=== PATIENT | male | born 1970 | race Caucasian/White ===

== ENCOUNTER 2020-10-14 13:54 | Outpatient (CLI) | payer OTHER, SELFPAY ==
--- NOTE | 2020-10-14 14:15 | US_ITS ---
WS: [id number] SCROTAL ULTRASOUND EXAMINATION CLINICAL INFORMATION: N50.89 - Other specified disorders of the male genital or... COMPARISON: None. FINDINGS: TESTES Normal in size and echotexture, without focal lesion. Color Doppler: Normal color Doppler flow pattern. Right testes size: 4.4 cm x 2.6 cm x 2.1 cm. Left testes size: 4.7 cm x 3.0 cm x 2.4 cm. EPIDIDYMIDES Heterogeneous enlarged edematous left epididymis consistent with left epididymitis. Left epididymis m easures 1.9 x 1.6 cm. Normal right epididymis. Right epididymal cyst measuring 6.8 mm. HYDROCELE None. VARICOCELE None. OTHER FINDINGS None. US/US scrotum [id number] IMPRESSION: 1. Findings compatible with left epididymitis. 2. Right epididymal cyst measuring 6.8 mm
== END 2020-10-14 13:55 | disposition home or self-care (01) ==
LOC: RAD 14:01
PROVIDERS: Visit Provider Nurse Practitioner Family
DX: N50.89 Other specified disorders of the male genital organs (principal); N50.3 Cyst of epididymis
CPT/HCPCS: 76870

== ENCOUNTER → 2021-05-05 09:55 | Outpatient (BNVA) | payer OTHER, SELFPAY | PROVIDERS: Visit Provider Nurse Practitioner Family | DX: M20.5X2 Other deformities of toe(s) (acquired), left foot (principal); M79.672 Pain in left foot; X58.XXXA Exposure to other specified factors, initial encounter; S91.105A Unspecified open wound of left lesser toe(s) without damage to nail, initial encounter; Z12.5 Encounter for screening for malignant neoplasm of prostate; R03.0 Elevated blood-pressure reading, without diagnosis of hypertension; Z13.220 Encounter for screening for lipoid disorders | CPT/HCPCS: 73620; 80053; 80061; G0103 ==